=== PATIENT | male | born 1985 | race Caucasian/White ===

== ENCOUNTER 2017-06-29 10:51 | Emergency (ER) | payer MEDICAID ==
[2017-06-29 10:51] VITALS: BMI 22.7
[2017-06-29 11:09] VITALS: PULSE 64; RESP 18; O2SAT 99
--- NOTE | 2017-06-29 12:13 | C.PDOC ---
History Of Present Illness 31 y/o male presents to the ED for evaluation of left arm pain for 2 days worsened today. Patient states that his pain starts in elbow radiates down to his left hand, and states he is unable to bend or move his left arm, hand or fingers. Described as squeezing sensation in arm. As per , left arm was swollen in the morning. 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 Otherwise, denies any sensory changes, skin changes, fever, or any other associated symptoms at this time. Time Seen by Provider: 06/29/17 11:23 Chief Complaint (Nursing): Upper Extremity Problem/Injury History Per: Patient History/Exam Limitations: no limitations Onset/Duration Of Symptoms: Hrs Current Symptoms Are (Timing): Still Present Quality: Squeezing, "Pain" Exacerbating Factor(s): Strenuous Use Of Affected Area, Movement Recent travel outside of the [place]: No Additional History Per: Patient Past Medical History Reviewed: Historical Data, Nursing Documentation, Vital Signs Vital Signs: Last Vital Signs Temp 98.1 F 06/29/17 13:11 Pulse 64 06/29/17 13:11 Resp 18 06/29/17 11:08 BP 114/59 L 06/29/17 13:11 Pulse Ox 99 06/29/17 12:38 - Medical History PMH: Anxiety (BREATHING DIFFICULTIES WITH ANXIETY), Arthritis (IN WRISTS), Sexually Transmitted Disease (Genital herpes treated with prn zovirax) Denies: Chronic Kidney Disease - [facility] Procedures CAUTERY TO STOP EPISTAX (02/22/03) INJECT/INFUSE ELECTROLYT (05/02/14) INJECT/INFUSE NEC (05/02/14) Family History: States: Unknown Family Hx - Social History Hx Tobacco Use: Yes Hx Alcohol Use: Yes Hx Substance Use: Yes (daily use of marijuana) - Immunization History Hx Tetanus Toxoid Vaccination: No Hx Influenza Vaccination: Yes Hx Pneumococcal Vaccination: No Review Of Systems Except As Marked, All Systems Reviewed And Found Negative. Constitutional: Negative for: Fever, Chills Musculoskeletal: Positive for: Arm Pain (left), Hand Pain (left) Skin: Negative for: Rash, Bruising Neurological: Negative for: Weakness, Numbness Physical Exam - Physical Exam Appears: Non-toxic, No Acute Distress Skin: Normal Color, Warm, Dry, No Rash, No Ecchymosis (no ecchymosis or erythema to left forearm, wrist or hand) Head: Atraumatic, Normacephalic Eye(s): bilateral: Normal Inspection Neck: Normal ROM Chest: Symmetrical Extremity: No Normal ROM (pain with supination and pronation of left forearm and wrist and hand), Tenderness (left forearm, and wrist diffusely tender, no focal tenderness), Capillary Refill (< 2 sec.), No Deformity, No Swelling, No Other (no erythema, no mass, no ecchymosis) Pulses: Left Radial: Normal Neurological/Psych: Oriented x3, Normal Speech, Normal Sensation Gait: Steady ED Course And Treatment O2 Sat by Pulse Oximetry: 99 (RA) Pulse Ox Interpretation: Normal - Other Rad Left hand x-ray X-Ray: Interpreted by Me, Viewed By Me Interpretation: No acute fracture or dislocation. Medical Decision Making Medical Decision Making: Impression: 31 y/o male presents with left arm pain. Exam shows diffuse arm tenderness and pain with movement, no obvious deformity, no swelling, no mass or signs of cellulitis. Plan: * Toradol IM * Hand Xray * Reassess and disposition Left hand x-ray ordered and reviewed. No acute fracture or dislocation. Physical exam finding consistent with Tendonitis. Velcro volar splint applied. REcommend NSAID for pain. Patient was instructed to follow up with physician/ clinic in 1-2 days. Disposition Counseled Patient/Family Regarding: Need For Followup, Rx Given - Disposition Referrals: Chele Thomas MD [Staff Provider] - Disposition: HOME/ ROUTINE Disposition Time: 13:10 Condition: STABLE Additional Instructions: Your xray was normal, no fracture. Take Motrin as needed for pain every 6 hours , with food to not upset stomach. Follow up with orthopedic if pain persists Prescriptions: Ibuprofen [Motrin] 600 mg PO Q8 #30 tab Instructions: Tendinitis (ED) Forms: [facility] (Telugu), Work Excuse - POA Present On Arrival: None - Clinical Impression Clinical Impression: Tendonitis of wrist, left - PA / COIL [employer]ER / Resident Statement MD/DO has reviewed & agrees with the documentation as recorded. - Scribe Statement The provider has reviewed the documentation as recorded by the Lenyibkinsey Cook All medical record entries made by the Scribe were at my direction and personally dictated by me. I have reviewed the chart and agree that the record accurately reflects my personal performance of the history, physical exam, medical decision making, and the department course for this patient. I have also personally directed, reviewed, and agree with the discharge instructions and disposition.
[2017-06-29 13:12] VITALS: BP 114/59; TEMP 98.1
--- NOTE | 2017-06-29 13:39 | RAD ---
PROCEDURE: Left Hand Radiographs. HISTORY: Pain COMPARISON: None. FINDINGS: BONES: There is no acute displaced fracture or bone destruction. Bone alignment is normal. JOINTS: Normal. SOFT TISSUES: Normal. OTHER FINDINGS: None. IMPRESSION: No acute fracture or dislocation.
== END 2017-06-29 13:12 | disposition home or self-care (01) ==
LOC: C.ER 10:51
DX: M77.9 Enthesopathy, unspecified (principal)
CPT/HCPCS: 73130; 96372; 99284; J1885

== ENCOUNTER 2018-02-27 16:55 | Emergency (ER) | payer SELFPAY ==
[2018-02-27 16:56] VITALS: BMI 22.7
[2018-02-27 17:11] VITALS: BP 132/82; PULSE 85; RESP 16; TEMP 98.2; O2SAT 98
[2018-02-27 17:55] LABS: BASO # 0.1 K/uL (0.0-0.2); BASO % 1.3 % (0.0-2.0); EOS # 0.1 K/uL (0.0-0.7); EOS % 1.3 % (0.0-4.0); HEMOGLOBIN 12.6 g/dL (12.0-18.0); LYMPH # 3.2 K/uL (1.0-4.3); LYMPH % 43.7 % (20.0-40.0); MEAN CELL VOLUME 84.7 fL (80.0-94.0); MEAN PLATELET VOLUME 8.2 fL (7.2-11.7); MONO # 0.4 K/uL (0.0-0.8); MONO % 5.3 % (0.0-10.0); NEUT # 3.6 K/uL (1.8-7.0); NEUT % 48.4 % (50.0-75.0); NRBC % 0.1 % (0.0-2.0); RBC 4.5 Mil/uL (4.40-5.90); RED CELL DISTRIBUTION WIDTH 13.7 % (11.5-14.5); WHITE BLOOD COUNT 7.4 K/uL (4.8-10.8)
[2018-02-27 18:05] LABS: ALB/GLOB RATIO 1.2 (1.0-2.1); ALBUMIN 4.1 g/dL (3.5-5.0); ALT/SGPT 68 U/L (21-72); AST/SGOT 39 U/L (17-59); BLOOD UREA NITROGEN 13 mg/dL (9-20); CALCIUM 8.7 mg/dl (8.6-10.4); GFR AFRICAN-AMERICAN > 60; GFR NON-AFRICAN AMERICAN > 60
--- NOTE | 2018-02-27 18:47 | C.PDOC ---
History Of Present Illness 32-year-old male, presents to the emergency department with complaints of four day duration of left sided chest pain, described as sharp. Patient states he was wrestling a few days ago when he developed the pain, that worsens with deep breaths and movement. Patient denies nausea/vomiting, shortness of breath, hemoptysis, abdominal pain, back pain, numbness, weakness. Time Seen by Provider: 02/27/18 17:25 Chief Complaint (Nursing): Chest Pain History Per: Patient History/Exam Limitations: no limitations Onset/Duration Of Symptoms: Persistent Current Symptoms Are (Timing): Still Present Exacerbating Factors: Turning, Movement Past Medical History Reviewed: Historical Data, Nursing Documentation, Vital Signs Vital Signs: Last Vital Signs Temp 98.2 F 02/27/18 17:08 Pulse 85 02/27/18 17:08 Resp 16 02/27/18 17:08 BP 132/82 02/27/18 17:08 Pulse Ox 98 02/27/18 19:01 - Medical History PMH: Anxiety (BREATHING DIFFICULTIES WITH ANXIETY), Arthritis (IN WRISTS), Sexually Transmitted Disease (Genital herpes treated with prn zovirax) - [facility] Procedures CAUTERY TO STOP EPISTAX (02/22/03) INJECT/INFUSE ELECTROLYT (05/02/14) INJECT/INFUSE NEC (05/02/14) Family History: States: No Known Family Hx - Social History Hx Tobacco Use: Yes Hx Alcohol Use: Yes Hx Substance Use: No - Immunization History Hx Tetanus Toxoid Vaccination: No Hx Influenza Vaccination: Yes Hx Pneumococcal Vaccination: No Review Of Systems Except As Marked, All Systems Reviewed And Found Negative. Constitutional: Negative for: Fever, Chills Cardiovascular: Positive for: Chest Pain Respiratory: Negative for: Shortness of Breath Gastrointestinal: Negative for: Nausea, Vomiting Neurological: Negative for: Weakness, Numbness, Headache, Dizziness Physical Exam - Physical Exam Appears: Non-toxic, No Acute Distress Skin: Normal Color, Warm, Dry, No Rash Head: Atraumatic, Normacephalic Eye(s): bilateral: PERRL Nose: Normal Oral Mucosa: Moist Lips: Normal Appearing Neck: Normal ROM, Supple Chest: Symmetrical, Tenderness (left anterior chest wall), No Ecchymosis, No Subcutaneous Emphysema Cardiovascular: Rhythm Regular, No Friction Rub, No Murmur Respiratory: Normal Breath Sounds, No Accessory Muscle Use, No Stridor, No Wheezing Gastrointestinal/Abdominal: Bowel Sounds (active), Soft, No Tenderness Back: Normal Inspection, No CVA Tenderness Extremity: Normal ROM, No Deformity, No Swelling Neurological/Psych: Oriented x3, Normal Speech, Normal Motor Gait: Steady ED Course And Treatment - Laboratory Results Result Diagrams: 02/27/18 17:47 02/27/18 17:47 ECG: Interpreted By Me, Viewed By Me ECG Rhythm: Sinus Rhythm ECG Interpretation: No Acute Changes Rate From EC O2 Sat by Pulse Oximetry: 98 (RA) Pulse Ox Interpretation: Normal Medical Decision Making Medical Decision Making: Plan: * EKG * Labs * CHest X-Ray * Toradol * Reassess and Disposition On re-exam, the patient reports that she feels well. Abdomen is soft, non- tender and the patient is tolerating PO well. Lungs are CTA, heart is RRR. Ambulatory in the ED with steady gait. Follow up with the medical doctor/clinic within 1-2 days. Return if wrosened. Disposition - Disposition Referrals: Violeta Morales DO [[facility]] - Disposition: HOME/ ROUTINE Disposition Time: 18:45 Condition: IMPROVED Additional Instructions: Follow up with the medical doctor within 1-2 days. Return if worsened. Prescriptions: diaZEpam [Valium] 5 mg PO TID #21 tab Ibuprofen [Motrin] 600 mg PO TID #21 tab Lidocaine 5% [Lidoderm] 1 patch TOP DAILY #10 patch Instructions: Costochondritis Forms: [facility] (Welsh) - POA Present On Arrival: None - Clinical Impression Clinical Impression: Chest pain, Costochondritis - Scribe Statement The provider has reviewed the documentation as recorded by the Scribe (Ramu Leroy) All medical record entries made by the Scribe were at my direction and personally dictated by me. I have reviewed the chart and agree that the record accurately reflects my personal performance of the history, physical exam, medical decision making, and the department course for this patient. I have also personally directed, reviewed, and agree with the discharge instructions and disposition.
--- NOTE | 2018-02-27 18:50 | RAD ---
HISTORY: pleuritic pain COMPARISON: 01/21/2016 TECHNIQUE: Chest PA and lateral FINDINGS: LUNGS: No active pulmonary disease. PLEURA: No significant pleural effusion identified. No pneumothorax apparent. CARDIOVASCULAR: Normal. OSSEOUS STRUCTURES: No significant abnormalities. VISUALIZED UPPER ABDOMEN: Normal. OTHER FINDINGS: None. IMPRESSION: No active disease.
== END 2018-02-27 19:10 | disposition home or self-care (01) ==
LOC: C.ER 16:55
DX: M94.0 Chondrocostal junction syndrome [Tietze] (principal); R07.9 Chest pain, unspecified
CPT/HCPCS: 71046; 80053; 84484; 85025; 96374; 99283; J1885